=== PATIENT | female | born 1940 | race Caucasian/White ===

== ENCOUNTER 2017-06-24 00:08 | Inpatient (IN) | payer OTHER, MEDICARE ==
[~2017-06-24] VITALS: Ht 167.6 cm; Wt 90.7 kg
[2017-06-24] VITALS (8 sets, daily range): BP systolic 108–132; BP diastolic 50–78; PULSE 74–97; RESP 16–20; TEMP 97.6–98.5; O2SAT 89–96
[~2017-06-24 00:08] MED LIST: ASPI81TA82 PO; CARV3.125 PO; FISH1000 PO; GABA300C3 PO; GLUCTAB PO; LEVO75TA3 PO; LOVA10TA PO; MSIR15 PO; MVI PO; OMEP20TA PO; VITA200017 PO; VITA400C70 PO; VITA500T49 PO
[2017-06-24] MEDS ORDERED: MORP-43 PO (00:25)
[2017-06-24] MEDS ORDERED: METF500T PO (00:25)
[2017-06-24] MEDS ORDERED: GABA300C5 PO (00:25)
[2017-06-24 01:36] LABS: AUTOMATED NEUTROPHIL # 12.8 TH/MM3 (1.8-7.7); BASOPHIL % 0.2 % (0.0-2.0); EOSINOPHIL % 0.1 % (0.0-4.0); HEMATOCRIT 42.4 % (35.0-46.0); HEMOGLOBIN 13.6 GM/DL (11.6-15.3); LYMPH % 7.9 % (9.0-44.0); LYMPHOCYTE # 1.2 TH/MM3 (1.0-4.8); MEAN CELL VOLUME 80.5 FL (80.0-100.0); MEAN CORPUSCULAR HEMOGLOBIN 25.7 PG (27.0-34.0); MEAN PLATELET VOLUME 9.2 FL (7.0-11.0); MONO % 8.5 % (0.0-8.0); MONOCYTE # 1.3 TH/MM3 (0-0.9); NEUT % 83.3 % (16.0-70.0); PLATELET COUNT 199 TH/MM3 (150-450); RED BLOOD COUNT 5.27 MIL/MM3 (4.00-5.30); RED CELL DISTRIBUTION WIDTH 18.6 % (11.6-17.2); WHITE BLOOD COUNT 15.4 TH/MM3 (4.0-11.0)
[2017-06-24] MEDS ORDERED: MORPHINE SULFATE 15 MG CONTROLLED RELEASE TAB PO ONE (02:00)
[2017-06-24 02:08] LABS: ALBUMIN 2.9 GM/DL (3.4-5.0); ALT (GPT) 40 U/L (10-53); AST (GOT) 169 U/L (15-37); BICARBONATE 31.5 MEQ/L (21.0-32.0); BLOOD UREA NITROGEN 30 MG/DL (7-18); CALCIUM 8.7 MG/DL (8.5-10.1); CHLORIDE 101 MEQ/L (98-107); CREATININE 1.54 MG/DL (0.50-1.00); GLOMERULAR FILTRATION RATE 33 ML/MIN (>89); GLUCOSE,RANDOM 120 MG/DL (74-106); SODIUM (NA) 140 MEQ/L (136-145)
[2017-06-24 02:10] LABS: ALKALINE PHOSPHATASE 105 U/L (45-117); TOTAL BILIRUBIN ADULT 0.7 MG/DL (0.2-1.0); TOTAL PROTEIN 6.9 GM/DL (6.4-8.2)
[2017-06-24 02:14] LABS: BACTERIA, URINE MANY /hpf; BILIRUBIN, URINE NEG (NEG); BLOOD, URINE SMALL (NEG); GLUCOSE,URINE NEG (NEG); HYALINE CAST, URINE 2 /lpf (RARE); KETONE, URINE NEG (NEG); MUCUS URINE FEW /lpf (OCC); NITRITE,URINE POS (NEG); PH, URINE 5.5 (5.0-8.5); SQUAMOUS EPITHELIAL CELL URINE 2 /hpf (0-5); URINE COLOR YELLOW (YELLW/STRAW); URINE LEUKOCYTE ESTERASE SMALL (NEG)
[2017-06-24] MEDS ORDERED: PIPERACIL-TAZO 3.375 GM PREMIX 50 ML IV ONE (02:45)
--- NOTE | 2017-06-24 02:53 | PD ---
HPI Chief Complaint: Fall Time Seen by Provider: 00:15 Travel History International Travel<30 days: No Contact w/Intl Traveler<30days: No Traveled to known affect area: No History of Present Illness HPI Patient was lying unconscious on her floor of her house for unknown amount of hours possibly over 12 patient was found covered in feces half naked on the floor by her roommate. She was last seen normal over 12 hours ago. Patient comes in combative refusing to let the paramedics put a line in her she is covered in dried defecation and smells of urine as well as feces. She says that she is on medication for her chronic arthritis she says she tripped as she speaks she is very cloudy she fades off while she is talking and seems to be either under the influence or septic. In the middle of sentence she will trial off and not finished. Patient is refusing to let us put an IV in however recommends her to let us draw blood and to do in urine. Her UA shows that she has a urine infection and apparently she has been treated with p.o. antibiotics for urine infection without success patient still insisting she will not let us put an IV and to give her fluid as well as hydrate her kidneys to protect him from the rhabdomyolysis that she will have from falling and lying on the floor and one position for over 10 hours I feel it is necessary medically to put the IV in because she is not competent mind and body to make a decision right now to say that she will not let us put an IV in I give her Zosyn 3.375 g as well as 2 L of fluid and I am forced to put her in soft restraints we put the IV in because she is not able to refuse treatment because she is altered by sepsis as possible overdose of her opiates. HPI is limited due to her on cooperating resistant behavior. Review of systems is hard to assess as when she tells me recent account of events leading to face down on floor , in the middle of the account she slowly trails off and she falls asleep again PFSH Past Medical History Arthritis: Yes (RHEUMATOID) Blood Disorders: No Depression: Yes Cancer: No Cardiovascular Problems: Yes High Cholesterol: Yes COPD: Yes Diabetes: Yes Patient Takes Glucophage: No Diminished Hearing: No Endocrine: Yes GERD: Yes Genitourinary: Yes (HX OF KIDNEY STONES?) Immune Disorder: Yes Kidney Stones: Yes Musculoskeletal: Yes (OSTEOPOROSIS) Neurologic: No Psychiatric: Yes Reproductive: No Respiratory: Yes (COPD) ?: Not Menopausal: Yes Past Surgical History Other Surgery: Yes (POINTED TO L NECK) Social History Alcohol Use: Yes Tobacco Use: No Substance Use: No Allergies-Medications (Allergen,Severity, Reaction): Coded Allergies: No Known Allergies (Verified Allergy, Unknown, 06/24/17) Reported Meds & Prescriptions Reported Meds & Active Scripts Active Reported Gabapentin 300 Mg Cap 300 Mg PO BID Morphabond ER 12 HR (Morphine Sulfate) 15 Mg Tab 15 Mg PO Q12H Metformin (Metformin HCl) 500 Mg Tab 500 Mg PO DAILY With a meal Review of Systems ROS Limitations: Altered Mental Status, Poor Historian Physical Exam Narrative GENERAL: Patient seems on altered possibly delirium due to sepsis due to UTI or due to overdose of the morphine pill she takes an she trails off in the middle of sentence SKIN: Warm and dry. covered in dried fecal material, sacral breakdown parasacral bilateral HEAD: Atraumatic. Normocephalic. EYES: Pupils equal and round. No scleral icterus. No injection or drainage. ENT: No nasal bleeding or discharge. Mucous membranes pink and moist. NECK: Trachea midline. No JVD. CARDIOVASCULAR: Regular rate and rhythm. RESPIRATORY: No accessory muscle use. Clear to auscultation. Breath sounds equal bilaterally. GASTROINTESTINAL: Abdomen soft, non-tender, nondistended. Hepatic and splenic margins not palpable. MUSCULOSKELETAL: Extremities without clubbing, cyanosis, or edema. No obvious deformities. NEUROLOGICAL: Awake and alert. No obvious cranial nerve deficits. Motor grossly within normal limits. Five out of 5 muscle strength in the arms and legs. Normal speech. PSYCHIATRIC: Irritable and uncooperative as well as seeming to be septic or having fluctuating levels of consciousness Data Data Last Documented VS Orders Orders Urinalysis - C+S If Indicated (06/24/17 00:26) Complete Blood Count With Diff (06/24/17 00:26) Comprehensive Metabolic Panel (06/24/17 00:26) Morphine Sr (Oramorph Sr) (06/24/17 02:00) Urinary Catheter Management JOSEMANUEL.Q8H (06/24/17 01:52) Ct Brain W/O Iv Contrast(Rout) (06/24/17 ) Urine Culture (06/24/17 02:00) Creatine Kinase (Cpk) (06/24/17 02:26) Piperacil-Tazo 3.375 Gm Premix (Zosyn 3. (06/24/17 02:45) Restraints Non-Violent JOSEMANUEL.Q3H (06/24/17 03:25) Dextrose 50% In Evangelista (Vial) Inj (D50w (Vi (06/24/17 04:15) Glucagon Inj (Glucagon Inj) (06/24/17 04:15) Insulin Aspart Supplemtl Scale (Novolog (06/24/17 08:00) Admit To Inpatient (06/24/17 ) Vital Signs (Adult) Q4H (06/24/17 04:15) Activity Oob With Assistance (06/24/17 04:15) Intake + Output JOSEMANUEL.QSHIFT (06/24/17 04:15) Diet 1800 Ada Cons Carb (06/24/17 Breakfast) Sodium Chlor 0.9% 1000 Ml Inj (Ns 1000 M (06/24/17 04:15) Sodium Chloride 0.9% Flush (Ns Flush) (06/24/17 04:15) Sodium Chloride 0.9% Flush (Ns Flush) (06/24/17 09:00) Ondansetron Inj (Zofran Inj) (06/24/17 04:15) Comprehensive Metabolic Panel (06/25/17 06:00) Complete Blood Count With Diff (06/25/17 06:00) Pt Request For Service (06/24/17 04:15) Case Management Consult (06/24/17 04:15) Scd Bilateral/Knee High JOSEMANUEL.BID (06/24/17 04:15) Floyd Bilateral/Knee High JOSEMANUEL.QSHIFT (06/24/17 04:16) Acetaminophen (Tylenol) (06/24/17 04:15) Docusate Sodium-Senna (Manjula-Colace) (06/24/17 09:00) Magnesium Hydroxide Liq (Milk Of Magnesi (06/24/17 04:15) Sennosides (Senokot) (06/24/17 04:15) Bisacodyl Supp (Dulcolax Supp) (06/24/17 04:15) Lactulose Liq (Lactulose Liq) (06/24/17 04:15) Inpatient Certification (4/28/18 ) Ceftriaxone Inj (Rocephin Inj) (06/24/17 23:00) CKMB (06/24/17 01:25) CKMB% (06/24/17 01:25) Admit Order (Ed Use Only) (06/24/17 04:31) Labs Laboratory Tests Test 06/24/17 01:25 06/24/17 02:00 White Blood Count 15.4 TH/MM3 Red Blood Count 5.27 MIL/MM3 Hemoglobin 13.6 GM/DL Hematocrit 42.4 % Mean Corpuscular Volume 80.5 FL Mean Corpuscular Hemoglobin 25.7 PG Mean Corpuscular Hemoglobin Concent 32.0 % Red Cell Distribution Width 18.6 % Platelet Count 199 TH/MM3 Mean Platelet Volume 9.2 FL Neutrophils (%) (Auto) 83.3 % Lymphocytes (%) (Auto) 7.9 % Monocytes (%) (Auto) 8.5 % Eosinophils (%) (Auto) 0.1 % Basophils (%) (Auto) 0.2 % Neutrophils # (Auto) 12.8 TH/MM3 Lymphocytes # (Auto) 1.2 TH/MM3 Monocytes # (Auto) 1.3 TH/MM3 Eosinophils # (Auto) 0.0 TH/MM3 Basophils # (Auto) 0.0 TH/MM3 CBC Comment DIFF FINAL Differential Comment Blood Urea Nitrogen 30 MG/DL Creatinine 1.54 MG/DL Random Glucose 120 MG/DL Total Protein 6.9 GM/DL Albumin 2.9 GM/DL Calcium Level 8.7 MG/DL Alkaline Phosphatase 105 U/L Aspartate Amino Transf (AST/SGOT) 169 U/L Alanine Aminotransferase (ALT/SGPT) 40 U/L Total Bilirubin 0.7 MG/DL Sodium Level 140 MEQ/L Potassium Level 3.9 MEQ/L Chloride Level 101 MEQ/L Carbon Dioxide Level 31.5 MEQ/L Anion Gap 8 MEQ/L Estimat Glomerular Filtration Rate 33 ML/MIN Total Creatine Kinase 3350 U/L Creatine Kinase MB 48.3 NG/ML Creatine Kinase MB % 1.4 % Urine Color YELLOW Urine Turbidity HAZY Urine pH 5.5 Urine Specific [place] 1.017 Urine Protein TRACE mg/dL Urine Glucose (UA) NEG mg/dL Urine Ketones NEG mg/dL Urine Occult Blood SMALL Urine Nitrite POS Urine Bilirubin NEG Urine Urobilinogen 2.0 MG/DL Urine Leukocyte Esterase SMALL Urine RBC 2 /hpf Urine WBC 3 /hpf Urine Squamous Epithelial Cells 2 /hpf Urine Bacteria MANY /hpf Urine Hyaline Casts 2 /lpf Urine Mucus FEW /lpf Microscopic Urinalysis Comment CULTURE INDICATED MDM Medical Decision Making Medical Screen Exam Complete: Yes Emergency Medical Condition: Yes Differential Diagnosis urosepsis leading to altered mental status, vs AMS from morphine overdose other versus altered mental status from head bleed versus altered mental status from dehydration versus altered mental status from hypoglycemia versus other causes of altered mental status including ingestions or toxins Narrative Course Patient has a UTI which is nitrate positive she is given Zosyn 3.375 g she also has rhabdomyolysis with 3350 CPK -->2 L of normal saline to protect her kidneys patient is admitted for rhabdomyolysis as well as UTI. Pt was refusing labs work and IV access but her mental status was altered and she was in no state to understand the severity of her situation , We briefly place her in soft restraints to given her ANtibioitcs and @ liters of NS to protect her kidneys from permanent injury, Admit for further eval of MS Diagnosis Primary Impression: Rhabdomyolysis Qualified Codes: M62.82 - Rhabdomyolysis Additional Impressions: BILL (acute kidney injury) UTI (urinary tract infection) Qualified Codes: N30.00 - Acute cystitis without hematuria Admitting Information Admitting Physician Requests: Admit Scripts Skin Protectants, Misc. (Calazime Skin Protectant/) 3.5 %-0.2 %-69 %-16.5 % Pst 3.5 % TOPICAL BID for Infection, #1 % 1 Refill Prov: Mitch Loera MD 06/26/17 Walker with Front Wheels (Walker with Front Wheels) 1 Mis Mis EA .XX DIRECTED, #1 0 Refills Prov: Mitch Loera MD 06/26/17 Lactobacillus Acidophilus (Lactinex) 1 Chew 1 TAB CHEW DAILY for Nutritional Supplement, #30 TAB 0 Refills Prov: Mitch Loera MD 06/26/17 Cefuroxime (Cefuroxime) 500 Mg Tab 500 MG PO Q12HR for Infection, #14 TAB Prov: Mitch Loera MD 06/26/17 Willie Spring MD Jun 24, 2017 02:53
[2017-06-24] MEDS ORDERED: LACTULOSE SYRUP 20 GM/30 ML CUP PO PRN (04:15)
[2017-06-24] MEDS ORDERED: SENNOSIDES 8.6 MG TAB PO PRN (04:15)
[2017-06-24] MEDS ORDERED: DEXTROSE 50% IN WATER 50 ML VIAL(D50) IV PUSH PRN (04:15)
[2017-06-24] MEDS ORDERED: GLUCAGON 1 MG/ML VIAL OTHER PRN (04:15)
[2017-06-24] MEDS ORDERED: MAGNESIUM HYDROXIDE SUSP 30 ML CUP PO PRN (04:15)
[2017-06-24] MEDS ORDERED: BISACODYL 10 MG SUPP RECTAL PRN (04:15)
[2017-06-24] MEDS ORDERED: SODIUM CHLORIDE 0.9% FLUSH 10 ML FLUSH IV FLUSH PRN (04:15)
[2017-06-24] MEDS ORDERED: ONDANSETRON HCL 4 MG/2 ML VIAL IVP PRN (04:15)
--- NOTE | 2017-06-24 04:22 | RADRPT ---
EXAM DATE/TIME: 06/24/2017 04:10 [place] COMPARISON: CT BRAIN W/O CONTRAST, February 03, 2015, 8:32. INDICATIONS : Altered mental status. RADIATION DOSE: 56.35 CTDIvol (mGy) MEDICAL HISTORY : Non-responsive. SURGICAL HISTORY : Non-responsive. ENCOUNTER: Initial ACUITY: 1 day PAIN SCALE: Non-responsive LOCATION: cranial TECHNIQUE: Multiple contiguous axial images were obtained of the head. Using automated exposure control and adj ustment of the mA and/or kV according to patient size, radiation dose was kept as low as reasonably a chievable to obtain optimal diagnostic quality images. DICOM format image data is available electro nically for review and comparison. FINDINGS: CEREBRUM: The ventricles are normal for age. No evidence of midline shift, mass lesion, hemorrhage or acute in farction. No extra-axial fluid collections are seen. POSTERIOR FOSSA: The cerebellum and brainstem are intact. The 4th ventricle is midline. The cerebellopontine angle i s unremarkable. EXTRACRANIAL: The visualized portion of the orbits is intact. SKULL: The calvaria is intact. No evidence of skull fracture. CONCLUSION: 1. No acute findings in the brain. Jeffy Valladares MD on June 24, 2017 at 4:19 Board Certified Radiologist. This report was verified electronically.
--- NOTE | 2017-06-24 04:58 | HHI.HP ---
[facility] Service [place] [facility] Primary Care Physician Unknown Admission Diagnosis uti and renal failure Diagnoses: (1) Encephalopathy Diagnosis: Principal (2) UTI (urinary tract infection) Diagnosis: Principal (3) BILL (acute kidney injury) Diagnosis: Principal (4) Rhabdomyolysis Diagnosis: Principal (5) DM (diabetes mellitus) Diagnosis: Principal Travel History International Travel<30 Days: No Contact w/Intl Traveler <30 Da: No Traveled to Known Affected Are: No History of Present Illness This is a 77-year-old female with a PMH of Rheumatoid Arthritis, HTN, Hyperlipidemia, COPD, DM and Chronic Narcotic Use who is brought to the ER by EMS after being found down by her roommate. Per report, pt last seen normal approx 12hrs prior, roommate found patient lying on the floor of her apartment covered in urine and feces. Upon arrival, pt combative/refusing medical care, placed in restraints, intermittent episodes of lethargy/sedation. Pt unable to provide any history secondary to AMS. On Morphine ER 15mg po bid per review of medication list. BP 128/58, HR 96, O2 sat 89% on RA, Afebrile. WBC 15.4. Creatinine 1.54, previously 0.78 on 02/06/2015. CPK 3350. UA positive for UTI. CT Head with no acute findings. S/p Zosyn in ER. Review of Systems Except as stated in HPI: all other systems reviewed are Neg ROS: Unable to obtain secondary to AMS. Past Family Social History Past Medical History PMH: Rheumatoid Arthritis, HTN, Hyperlipidemia, COPD, DM and Chronic Narcotic Use Past Surgical History PAST SURGICAL HISTORY: Unknown Allergies: Coded Allergies: No Known Allergies (Verified Allergy, Unknown, 06/24/17) Family History PAST FAMILY HISTORY: Reviewed. No h/o DM or CAD Social History PAST SOCIAL HISTORY: Positive for alcohol. Reportedly negative for tobacco or drugs. Physical Exam Vital Signs Vital Signs Date Time Temp Pulse Resp B/P (MAP) Pulse Ox O2 Delivery O2 Flow Rate FiO2 06/24/17 04:42 78 16 128/58 (81) 94 Simple Mask 7.00 06/24/17 00:14 98.4 96 18 128/58 (05) 89 Physical Exam PE: GENERAL: Elderly white female in no acute distress, lethargy, rouses to name, not answering questions. HEENT: PERRLA, EOMI. No scleral icterus or conjunctival pallor. No lid lag or facial droop. CARDIOVASCULAR: Regular rate and rhythm. No obvious murmurs to auscultation. No chest tenderness to palpation. RESPIRATORY: No obvious rhonchi or wheezing. Clear to auscultation. Breath sounds equal bilaterally. GASTROINTESTINAL: Abdomen soft, non-tender, nondistended. BS normal. MUSCULOSKELETAL: Extremities without clubbing, cyanosis, or edema. No obvious deformities. NEUROLOGICAL: Lethargic, not answering questions. No focal neurologic deficits. Moving both upper and lower extremities spontaneously. Laboratory Laboratory Tests Test 06/24/17 01:25 06/24/17 02:00 White Blood Count 15.4 Red Blood Count 5.27 Hemoglobin 13.6 Hematocrit 42.4 Mean Corpuscular Volume 80.5 Mean Corpuscular Hemoglobin 25.7 Mean Corpuscular Hemoglobin Concent 32.0 Red Cell Distribution Width 18.6 Platelet Count 199 Mean Platelet Volume 9.2 Neutrophils (%) (Auto) 83.3 Lymphocytes (%) (Auto) 7.9 Monocytes (%) (Auto) 8.5 Eosinophils (%) (Auto) 0.1 Basophils (%) (Auto) 0.2 Neutrophils # (Auto) 12.8 Lymphocytes # (Auto) 1.2 Monocytes # (Auto) 1.3 Eosinophils # (Auto) 0.0 Basophils # (Auto) 0.0 CBC Comment DIFF FINAL Differential Comment Blood Urea Nitrogen 30 Creatinine 1.54 Random Glucose 120 Total Protein 6.9 Albumin 2.9 Calcium Level 8.7 Alkaline Phosphatase 105 Aspartate Amino Transf (AST/SGOT) 169 Alanine Aminotransferase (ALT/SGPT) 40 Total Bilirubin 0.7 Sodium Level 140 Potassium Level 3.9 Chloride Level 101 Carbon Dioxide Level 31.5 Anion Gap 8 Estimat Glomerular Filtration Rate 33 Total Creatine Kinase 3350 Creatine Kinase MB 48.3 Creatine Kinase MB % 1.4 Urine Color YELLOW Urine Turbidity HAZY Urine pH 5.5 Urine Specific [place] 1.017 Urine Protein TRACE Urine Glucose (UA) NEG Urine Ketones NEG Urine Occult Blood SMALL Urine Nitrite POS Urine Bilirubin NEG Urine Urobilinogen 2.0 Urine Leukocyte Esterase SMALL Urine RBC 2 Urine WBC 3 Urine Squamous Epithelial Cells 2 Urine Bacteria MANY Urine Hyaline Casts 2 Urine Mucus FEW Microscopic Urinalysis Comment CULTURE INDICATED Date/Time Source Procedure Growth Status 06/24/17 02:00 Urine Clean Catch Urine Culture Pending Received Result Diagram: 06/24/1712406/24/17124 Caprini VTE Risk Assessment Caprini VTE Risk Assessment: No/Low Risk (score <= 1) Caprini Risk Assessment Model Point Value = 1 Point Value = 2 Point Value = 3 Point Value = 5 Age 41-60 Minor surgery BMI > 25 kg/m2 Swollen legs Varicose veins or History of unexplained or recurrent spontaneous Oral contraceptives or hormone replacement Sepsis (< 1 month) Serious lung disease, including pneumonia (< 1 month) Abnormal pulmonary function Acute myocardial infarction Congestive heart failure (< 1 month) History of inflammatory bowel disease Medical patient at bed rest Age 61-74 Arthroscopic surgery Major open surgery (> 45 min) Laparoscopic surgery (> 45 min) Malignancy Confined to bed (> 72 hours) Immobilizing plaster cast Central venous access Age >= 75 History of VTE Family history of VTE Factor V Leiden Prothrombin [id number] Lupus anticoagulant Anticardiolipin antibodies Elevated serum homocysteine Heparin-induced thrombocytopenia Other congenital or acquired thrombophilia Stroke (< 1 month) Elective arthroplasty Hip, pelvis, or leg fracture Acute spinal cord injury (< 1 month) Prophylaxis Regimen Total Risk Factor Score Risk Level Prophylaxis Regimen 0-1 Low Early ambulation 2 Moderate Order ONE of the following: *Sequential Compression Device (SCD) *Heparin 5000 units SQ BID 3-4 Higher Order ONE of the following medications: *Heparin 5000 units SQ TID *Enoxaparin/Lovenox 40 mg SQ daily (WT < 150 kg, CrCl > 30 mL/min) *Enoxaparin/Lovenox 30 mg SQ daily (WT < 150 kg, CrCl > 10-29 mL/min) *Enoxaparin/Lovenox 30 mg SQ BID (WT < 150 kg, CrCl > 30 mL/min) AND/OR *Sequential Compression Device (SCD) 5 or more Highest Order ONE of the following medications: *Heparin 5000 units SQ TID (Preferred with Epidurals) *Enoxaparin/Lovenox 40 mg SQ daily (WT < 150 kg, CrCl > 30 mL/min) *Enoxaparin/Lovenox 30 mg SQ daily (WT < 150 kg, CrCl > 10-29 mL/min) *Enoxaparin/Lovenox 30 mg SQ BID (WT < 150 kg, CrCl > 30 mL/min) AND *Sequential Compression Device (SCD) Assessment and Plan Problem List: (1) Encephalopathy ICD Code: G93.40 - Encephalopathy, unspecified (2) UTI (urinary tract infection) ICD Code: N39.0 - Urinary tract infection, site not specified (3) BILL (acute kidney injury) ICD Code: N17.9 - Acute kidney failure, unspecified (4) Rhabdomyolysis ICD Code: M62.82 - Rhabdomyolysis (5) DM (diabetes mellitus) ICD Code: E11.9 - Type 2 diabetes mellitus without complications Assessment and Plan A/P: 1. Encephalopathy: baseline unknown, however seemingly independent, now lethargic/confused with intermittent episodes of agitation/combativeness, likely due to combination of chronic narcotic use and acute infection. CT Head w/ no acute findings, images reviewed by me. Neuro checks q4h. Hold narcotics. IVF, continue w/ IV Abx for underlying UTI. 2. UTI: U/a w/ UTI, s/p Zosyn IV in ER, continue w/ IV Abx, follow up cultures , IVF for hydration. 3. BILL: Creatinine 1.54, previously 0.78 on 02/06/15, IVF, repeat labs in am. 4. Rhabdomyolysis: CPK 3350, IVF for hydration, will repeat CPK in am for trend. 5. DM: Hold Metformin in light of BILL, sliding scale w/ Accu-Cheks. 6. DVT Prophylaxis: SCD/Teds. 7. Social work for d/c planning as needed. 8. Case discussed w/ ER physician at length, labs/records/imaging reviewed by me Physician Certification 2 Midnight Certification Type: Admission for Inpatient Services Order for Inpatient Services The services are ordered in accordance with Medicare regulations or non- Medicare payer requirements, as applicable. In the case of services not specified as inpatient-only, they are appropriately provided as inpatient services in accordance with the 2-midnight benchmark. Estimated LOS (days): 2 days is the estimated time the patient will need to remain in the hospital, assuming treatment plan goals are met and no additional complications. Post-Hospital Plan: Not yet determined Cecile Broussard MD Jun 24, 2017 04:58
[2017-06-24] MEDS ORDERED: SODIUM CHLOR 0.9% 1000 ML INJ 1,000 ML IV ONE (05:30)
[2017-06-24] MEDS: SODIUM CHLOR 0.9% 1000 ML INJ 1,000 ML IV SCH ×2 (07:05→21:42)
[2017-06-24] MEDS: INSULIN ASPART SUPPLEMENTAL SCALE SQ SCH ×4 (08:00→21:00)
[2017-06-24] MEDS ORDERED: DOCUSATE SODIUM 50 MG/SENNA 8.6 MG TAB PO SCH (09:00)
[2017-06-24] MEDS: SODIUM CHLORIDE 0.9% FLUSH 10 ML FLUSH IV FLUSH SCH ×2 (09:00→19:56)
--- NOTE | 2017-06-24 11:38 | HHI.PR ---
Subjective Remarks Follow-up embolic versus toxic encephalopathy/sepsis on presentation/UTI June 24, 2017-patient seen and examined, patient still lethargic however able to give me her name and stated she is lost her house and now lives with her roommate Objective Vitals Vital Signs Date Time Temp Pulse Resp B/P (MAP) Pulse Ox O2 Delivery O2 Flow Rate FiO2 06/24/17 07:20 97.6 78 20 132/78 (96) 94 06/24/17 05:50 74 18 117/56 (76) 95 Simple Mask 7.00 06/24/17 04:42 78 16 128/58 (81) 94 Simple Mask 7.00 06/24/17 00:14 98.4 96 18 128/58 (81) 89 Result Diagram: 06/24/17 0125 06/24/17 0125 Imaging Last Impressions Head CT 06/24/17 0000 Signed Impressions: Service Date/Time: Saturday, June 24, 2017 04:10 - CONCLUSION: 1. No acute findings in the brain. Jeffy Valladares MD Objective Remarks GENERAL: NAD SKIN: Warm and dry. HEAD: Normocephalic. EYES: No scleral icterus. No injection or drainage. NECK: Supple, trachea midline. No JVD or lymphadenopathy. CARDIOVASCULAR: Regular rate and rhythm without murmurs, gallops, or rubs. RESPIRATORY: Breath sounds equal bilaterally. No accessory muscle use. GASTROINTESTINAL: Abdomen soft, non-tender, nondistended. MUSCULOSKELETAL: No cyanosis, or edema. BACK: Nontender without obvious deformity. No CVA tenderness. A/P Problem List: (1) Sepsis ICD Code: A41.9 - Sepsis, unspecified organism (2) Encephalopathy ICD Code: G93.40 - Encephalopathy, unspecified (3) UTI (urinary tract infection) ICD Code: N39.0 - Urinary tract infection, site not specified (4) BILL (acute kidney injury) ICD Code: N17.9 - Acute kidney failure, unspecified (5) Rhabdomyolysis ICD Code: M62.82 - Rhabdomyolysis (6) DM (diabetes mellitus) ICD Code: E11.9 - Type 2 diabetes mellitus without complications Assessment and Plan 71-year-old female with Sepsis on presentation secondary to UTI Currently on Rocephin pending culture report including blood and urine Metabolic versus toxic encephalopathy Improving CT Head w/ no acute findings. Neuro checks q4h. Hold narcotics. IVF, continue w/ IV Abx for underlying UTI Urinary tract infection u/a w/ UTI, s/p Zosyn IV in ER, continue w/ IV Abx, follow up cultures, IVF for hydration. Acute kidney injury creatinine 1.54, previously 0.78 on 02/06/15, IVF, monitor BMP Rhabdomyolysis: CPK 3350, IVF for hydration, monitor CPK DM: Hold Metformin in light of BILL, sliding scale w/ Accu-Cheks. 6. DVT Prophylaxis: SCD/Teds. Problem Qualifiers (1) UTI (urinary tract infection): Qualified Codes: N30.00 - Acute cystitis without hematuria (2) Rhabdomyolysis: Qualified Codes: M62.82 - Rhabdomyolysis Mitch Loera MD Jun 24, 2017 11:38
[2017-06-24] MEDS: ACETAMINOPHEN 325 MG TAB PO PRN ×2 (12:37→19:53)
[2017-06-24] MEDS: cefTRIAXone INJ 1,000 MG in SODIUM CHLORIDE 0.9% INJ 100 ML IV SCH (22:24)
[2017-06-25] VITALS: BP 161/77; PULSE 83; RESP 18; TEMP 98.1; O2SAT 94
[2017-06-25] MEDS: ACETAMINOPHEN 325 MG TAB PO PRN ×2 (01:53→08:09)
[2017-06-25] MEDS: SODIUM CHLOR 0.9% 1000 ML INJ 1,000 ML IV SCH ×4 (01:54→20:38)
[2017-06-25 06:56] LABS: BASOPHIL % 0.3 % (0.0-2.0); EOSINOPHIL # 0.1 TH/MM3 (0-0.4); EOSINOPHIL % 0.5 % (0.0-4.0); HEMATOCRIT 43.6 % (35.0-46.0); MEAN CELL VOLUME 80.1 FL (80.0-100.0); MEAN CORPUSCULAR HEMOGLOBIN 25.7 PG (27.0-34.0); MEAN CORPUSCULAR HGB CONC 32.1 % (32.0-36.0); MEAN PLATELET VOLUME 9.4 FL (7.0-11.0); MONO % 7.1 % (0.0-8.0); MONOCYTE # 0.8 TH/MM3 (0-0.9); NEUT % 83.1 % (16.0-70.0); PLATELET COUNT 183 TH/MM3 (150-450); RED BLOOD COUNT 5.44 MIL/MM3 (4.00-5.30); RED CELL DISTRIBUTION WIDTH 18.4 % (11.6-17.2); WHITE BLOOD COUNT 10.9 TH/MM3 (4.0-11.0)
[2017-06-25 07:19] LABS: ALBUMIN 2.9 GM/DL (3.4-5.0); ALKALINE PHOSPHATASE 104 U/L (45-117); ALT (GPT) 49 U/L (10-53); AST (GOT) 125 U/L (15-37); BICARBONATE 29.3 MEQ/L (21.0-32.0); BLOOD UREA NITROGEN 8 MG/DL (7-18); CALCIUM 9.2 MG/DL (8.5-10.1); CHLORIDE 103 MEQ/L (98-107); CHOLESTEROL 148 MG/DL (120-200); CHOLESTEROL/ HDL RATIO 3.18 RATIO; CREATININE 0.64 MG/DL (0.50-1.00); GLOMERULAR FILTRATION RATE 90 ML/MIN (>89); GLUCOSE,RANDOM 109 MG/DL (74-106); HDL CHOLESTEROL 46.4 MG/DL (40.0-60.0); LDL CHOLESTEROL 80 MG/DL (0-99); SODIUM (NA) 142 MEQ/L (136-145); TOTAL BILIRUBIN ADULT 0.6 MG/DL (0.2-1.0); TOTAL PROTEIN 7.2 GM/DL (6.4-8.2); TRIGLYCERIDES 110 MG/DL (42-150)
[2017-06-25 08:00] VITALS: BP 134/85; PULSE 91; RESP 18; TEMP 98; O2SAT 96
[2017-06-25] MEDS: INSULIN ASPART SUPPLEMENTAL SCALE SQ SCH ×2 (08:00→12:00)
[2017-06-25] MEDS: SODIUM CHLORIDE 0.9% FLUSH 10 ML FLUSH IV FLUSH SCH ×2 (08:15→20:37)
[2017-06-25 12:00] VITALS: BP 175/86; PULSE 99; RESP 18; TEMP 97.1; O2SAT 94
[2017-06-25] MEDS ORDERED: ONDANSETRON HCL 4 MG/2 ML VIAL IV PUSH PRN (12:30)
[2017-06-25] MEDS ORDERED: CALCIUM CARBONATE 500 MG CHEWABLE TAB CHEW PRN (12:30)
--- NOTE | 2017-06-25 12:38 | HHI.PR ---
Subjective Remarks Follow-up embolic versus toxic encephalopathy/sepsis on presentation/UTI June 24, 2017-patient seen and examined, patient still lethargic however able to give me her name and stated she is lost her house and now lives with her roommate June 25, 2017-patient seen and examined, she is requesting her narcotics and states she is in pain. Alert and oriented x 3. Afebrile. Renal indices improved , CK trending down Objective Vitals Vital Signs Date Time Temp Pulse Resp B/P (MAP) Pulse Ox O2 Delivery O2 Flow Rate FiO2 06/25/17 12:00 97.1 99 18 175/86 (115) 94 06/25/17 09:09 16 06/25/17 08:00 98.0 91 18 134/85 (101) 96 06/25/17 00:00 98.1 83 18 161/77 (105) 94 06/24/17 23:28 93 Nasal Cannula 3.00 06/24/17 20:00 95 Simple Mask 7.00 06/24/17 20:00 98.3 97 18 124/63 (83) 95 06/24/17 16:00 97.7 81 18 126/60 (82) 96 06/24/17 12:46 Simple Mask 7.00 I/O 06/24/17 06/24/17 06/24/17 06/25/17 06/25/17 06/25/17 07:00 15:00 23:00 07:00 15:00 23:00 Intake Total 600 ml 1723 ml Output Total 900 ml 1250 ml 1200 ml Balance -300 ml 473 ml -1200 ml Intake Oral 600 ml 360 ml IV Total 1363 ml Output Urine Total 900 ml 1250 ml 1200 ml # Bowel Movements 4 4 Result Diagram: 06/25/17 0526 06/25/17 0526 Imaging Last Impressions Head CT 06/24/17 0000 Signed Impressions: Service Date/Time: Saturday, June 24, 2017 04:10 - CONCLUSION: 1. No acute findings in the brain. Jeffy Valladares MD Objective Remarks GENERAL: NAD SKIN: Warm and dry. wound to buttocks and RLE thigh HEAD: Normocephalic. EYES: No scleral icterus. No injection or drainage. NECK: Supple, trachea midline. No JVD or lymphadenopathy. CARDIOVASCULAR: Regular rate and rhythm without murmurs, gallops, or rubs. RESPIRATORY: Breath sounds equal bilaterally. No accessory muscle use. GASTROINTESTINAL: Abdomen soft, non-tender, nondistended. MUSCULOSKELETAL: No cyanosis, or edema. BACK: Nontender without obvious deformity. No CVA tenderness. A/P Problem List: (1) Sepsis ICD Code: A41.9 - Sepsis, unspecified organism (2) Encephalopathy ICD Code: G93.40 - Encephalopathy, unspecified (3) UTI (urinary tract infection) ICD Code: N39.0 - Urinary tract infection, site not specified (4) BILL (acute kidney injury) ICD Code: N17.9 - Acute kidney failure, unspecified (5) Rhabdomyolysis ICD Code: M62.82 - Rhabdomyolysis (6) DM (diabetes mellitus) ICD Code: E11.9 - Type 2 diabetes mellitus without complications Assessment and Plan 71-year-old female with Sepsis on presentation secondary to UTI Currently on Rocephin pending culture report including blood and urine Metabolic versus toxic encephalopathy Resolved CT Head w/ no acute findings. Neuro checks q4h. IVF, continue w/ IV Abx for underlying UTI Urinary tract infection u/a w/ UTI, s/p Zosyn IV in ER, continue w/ IV Abx, follow up cultures, IVF for hydration. Acute kidney injury Resolved with IVF, monitor BMP Decub ulcers Wound care nurse consult pending Chronic pain syndrome Start Low dose Narco, continue to Morphine Rhabdomyolysis: CPK improving IVF for hydration, monitor CPK DM: Resume Metformin, sliding scale w/ Accu-Cheks. DVT Prophylaxis: SCD/Teds. Problem Qualifiers (1) UTI (urinary tract infection): Qualified Codes: N30.00 - Acute cystitis without hematuria (2) Rhabdomyolysis: Qualified Codes: M62.82 - Rhabdomyolysis Mitch Loera MD Jun 25, 2017 12:38
[2017-06-25] MEDS: ACETAMINOPHEN/HYDROcodone 325 MG/5 MG TAB PO PRN ×3 (13:00→21:36)
[2017-06-25 16:00] VITALS: BP 160/85; PULSE 89; RESP 18; TEMP 97.7; O2SAT 95
[2017-06-25 20:00] VITALS: BP 167/80; PULSE 89; RESP 19; TEMP 98.2; O2SAT 94
[2017-06-25] MEDS: GABAPENTIN 300 MG CAP PO SCH (20:37)
[2017-06-25] MEDS: cefTRIAXone INJ 1,000 MG in SODIUM CHLORIDE 0.9% INJ 100 ML IV SCH (23:06)
[2017-06-26 00:11] VITALS: BP 158/81; PULSE 92; RESP 18; TEMP 98; O2SAT 94
[2017-06-26] MEDS: ACETAMINOPHEN/HYDROcodone 325 MG/5 MG TAB PO PRN ×2 (02:08→07:16)
[2017-06-26 04:19] VITALS: BP 167/80; PULSE 89; RESP 19; TEMP 98.2; O2SAT 94
[2017-06-26] MEDS: SODIUM CHLOR 0.9% 1000 ML INJ 1,000 ML IV SCH (06:15)
[2017-06-26 08:00] VITALS: BP 134/63; PULSE 73; RESP 17; TEMP 98.3; O2SAT 94
[2017-06-26] MEDS ORDERED: metFORMIN HCL 500 MG TAB PO SCH (09:00)
[2017-06-26] MEDS: SODIUM CHLORIDE 0.9% FLUSH 10 ML FLUSH IV FLUSH SCH (09:00)
[2017-06-26] MEDS: GABAPENTIN 300 MG CAP PO SCH (09:03)
--- NOTE | 2017-06-26 09:30 | HHI.FF ---
Face to Face Verification Diagnosis: (1) UTI (urinary tract infection) (2) Rhabdomyolysis (3) Encephalopathy Physical Therapy Order: Evaluate and Treat Home Health Nursing Order: Signs/symptoms of disease process I have seen patient Cathi Patton on 06/26/17. My clinical findings support the need for the requested home health care services because: Deconditioned w/ increased weakness I certify that my clinical findings support that this patient is homebound because: Poor cardiac reserve Mitch Loera MD Jun 26, 2017 09:30
--- NOTE | 2017-06-26 09:37 | HHI.PR ---
Subjective Remarks Follow-up embolic versus toxic encephalopathy/sepsis on presentation/UTI June 24, 2017-patient seen and examined, patient still lethargic however able to give me her name and stated she is lost her house and now lives with her roommate June 25, 2017-patient seen and examined, she is requesting her narcotics and states she is in pain. Alert and oriented x 3. Afebrile. Renal indices improved , CK trending down June 26, 2017-patient seen and examined, states she had a pretty good night and ready for discharge home. No acute event overnight. CK improved. Currently afebrile Objective Vitals Vital Signs Date Time Temp Pulse Resp B/P (MAP) Pulse Ox O2 Delivery O2 Flow Rate FiO2 06/26/17 08:55 Nasal Cannula 3.00 06/26/17 08:00 98.3 73 17 134/63 (86) 94 06/26/17 04:19 98.2 89 19 167/80 (109) 94 06/26/17 00:11 98.0 92 18 158/81 (106) 94 06/25/17 20:00 98.2 89 19 167/80 (109) 94 06/25/17 20:00 94 Nasal Cannula 3.00 06/25/17 18:43 17 06/25/17 16:00 97.7 89 18 160/85 (110) 95 06/25/17 12:00 97.1 99 18 175/86 (115) 94 I/O 06/25/17 06/25/17 06/25/17 06/26/17 06/26/17 06/26/17 07:00 15:00 23:00 07:00 15:00 23:00 Intake Total 1723 ml 1173 ml 1412 ml Output Total 1250 ml 1200 ml 300 ml 1150 ml Balance 473 ml -1200 ml 873 ml 262 ml Intake Oral 360 ml 600 ml 360 ml IV Total 1363 ml 573 ml 1052 ml Output Urine Total 1250 ml 1200 ml 300 ml 1150 ml # Bowel Movements 4 0 0 Result Diagram: 06/25/17 0526 06/25/17 0526 Imaging Last Impressions Head CT 06/24/17 0000 Signed Impressions: Service Date/Time: Saturday, June 24, 2017 04:10 - CONCLUSION: 1. No acute findings in the brain. Jeffy Valladares MD Objective Remarks GENERAL: NAD SKIN: Warm and dry. wound to buttocks and RLE thigh HEAD: Normocephalic. EYES: No scleral icterus. No injection or drainage. NECK: Supple, trachea midline. No JVD or lymphadenopathy. CARDIOVASCULAR: Regular rate and rhythm without murmurs, gallops, or rubs. RESPIRATORY: Breath sounds equal bilaterally. No accessory muscle use. GASTROINTESTINAL: Abdomen soft, non-tender, nondistended. MUSCULOSKELETAL: No cyanosis, or edema. BACK: Nontender without obvious deformity. No CVA tenderness. Procedures None A/P Problem List: (1) Sepsis ICD Code: A41.9 - Sepsis, unspecified organism Status: Resolved (2) Encephalopathy ICD Code: G93.40 - Encephalopathy, unspecified Status: Resolved (3) UTI (urinary tract infection) ICD Code: N39.0 - Urinary tract infection, site not specified (4) BILL (acute kidney injury) ICD Code: N17.9 - Acute kidney failure, unspecified (5) Rhabdomyolysis ICD Code: M62.82 - Rhabdomyolysis (6) DM (diabetes mellitus) ICD Code: E11.9 - Type 2 diabetes mellitus without complications Assessment and Plan 71-year-old female with Sepsis on presentation secondary to UTI Resolved Metabolic versus toxic encephalopathy Resolved CT Head w/ no acute findings. Neuro checks q4h. d/c IVF and IV Abx however switched to p.o. Ceftin for underlying UTI Urinary tract infection-E. coli Currently on Rocephin, will switch to p.o. Ceftin Acute kidney injury Resolved with IVF, monitor BMP Decub ulcers Wound care nurse consult pending Chronic pain syndrome Improving with low dose Narco, continue to HOLD Morphine Rhabdomyolysis: Resolved with IV fluid hydration as CPK trending down PK DM: Continue metformin, sliding scale w/ Accu-Cheks. DVT Prophylaxis: SCD/Teds. Problem Qualifiers (1) UTI (urinary tract infection): Qualified Codes: N30.00 - Acute cystitis without hematuria (2) Rhabdomyolysis: Qualified Codes: M62.82 - Rhabdomyolysis Mitch Loera MD Jun 26, 2017 09:37
[2017-06-26] MEDS ORDERED: LACTCHW3 CHEW (09:38)
[2017-06-26] MEDS ORDERED: CEFU1TAB20 PO (09:38)
--- NOTE | 2017-06-26 09:42 | HHI.DS ---
Discharge Summary Admission Date Jun 24, 2017 at 04:33 Discharge Date: Jun 26, 2017 Admitting Diagnosis uti and renal failure (1) Sepsis ICD Code: A41.9 - Sepsis, unspecified organism Status: Resolved (2) Encephalopathy ICD Code: G93.40 - Encephalopathy, unspecified Status: Resolved (3) UTI (urinary tract infection) ICD Code: N39.0 - Urinary tract infection, site not specified (4) BILL (acute kidney injury) ICD Code: N17.9 - Acute kidney failure, unspecified (5) Rhabdomyolysis ICD Code: M62.82 - Rhabdomyolysis (6) DM (diabetes mellitus) ICD Code: E11.9 - Type 2 diabetes mellitus without complications Procedures None Brief History - From Admission This is a 77-year-old female with a PMH of Rheumatoid Arthritis, HTN, Hyperlipidemia, COPD, DM and Chronic Narcotic Use who is brought to the ER by EMS after being found down by her roommate. Per report, pt last seen normal approx 12hrs prior, roommate found patient lying on the floor of her apartment covered in urine and feces. Upon arrival, pt combative/refusing medical care, placed in restraints, intermittent episodes of lethargy/sedation. Pt unable to provide any history secondary to AMS. On Morphine ER 15mg po bid per review of medication list. BP 128/58, HR 96, O2 sat 89% on RA, Afebrile. WBC 15.4. Creatinine 1.54, previously 0.78 on 02/06/2015. CPK 3350. UA positive for UTI. CT Head with no acute findings. S/p Zosyn in ER. CBC/BMP: 06/25/17 0526 06/25/17 0526 Significant Findings Laboratory Tests Test 06/24/17 01:25 06/24/17 02:00 06/25/17 02:00 06/25/17 05:26 White Blood Count 15.4 TH/MM3 (4.0-11.0) Mean Corpuscular Hemoglobin 25.7 PG (27.0-34.0) 25.7 PG (27.0-34.0) Red Cell Distribution Width 18.6 % (11.6-17.2) 18.4 % (11.6-17.2) Neutrophils (%) (Auto) 83.3 % (16.0-70.0) 83.1 % (16.0-70.0) Lymphocytes (%) (Auto) 7.9 % (9.0-44.0) Monocytes (%) (Auto) 8.5 % (0.0-8.0) Neutrophils # (Auto) 12.8 TH/MM3 (1.8-7.7) 9.0 TH/MM3 (1.8-7.7) Monocytes # (Auto) 1.3 TH/MM3 (0-0.9) Blood Urea Nitrogen 30 MG/DL (7-18) Creatinine 1.54 MG/DL (0.50-1.00) Random Glucose 120 MG/DL (74-106) 109 MG/DL (74-106) Albumin 2.9 GM/DL (3.4-5.0) 2.9 GM/DL (3.4-5.0) Aspartate Amino Transf (AST/SGOT) 169 U/L (15-37) 125 U/L (15-37) Estimat Glomerular Filtration Rate 33 ML/MIN (>89) Total Creatine Kinase 3350 U/L (26-192) 1163 U/L (26-192) Creatine Kinase MB 48.3 NG/ML (0.5-3.6) 12.5 NG/ML (0.5-3.6) Urine Turbidity HAZY (CLEAR) Urine Occult Blood SMALL (NEG) Urine Nitrite POS (NEG) Urine Leukocyte Esterase SMALL (NEG) Urine Bacteria MANY /hpf (NONE) Urine Mucus FEW /lpf (OCC) Urine Opiates Screen POS (NEG) Red Blood Count 5.44 MIL/MM3 (4.00-5.30) Potassium Level 3.4 MEQ/L (3.5-5.1) Test 06/26/17 07:14 Total Creatine Kinase 274 U/L (26-192) Creatine Kinase MB 7.8 NG/ML (0.5-3.6) Imaging Last Impressions Head CT 06/24/17 0000 Signed Impressions: Service Date/Time: Saturday, June 24, 2017 04:10 - CONCLUSION: 1. No acute findings in the brain. Jeffy Valladares MD PE at Discharge GENERAL: NAD SKIN: Warm and dry. wound to buttocks and RLE thigh HEAD: Normocephalic. EYES: No scleral icterus. No injection or drainage. NECK: Supple, trachea midline. No JVD or lymphadenopathy. CARDIOVASCULAR: Regular rate and rhythm without murmurs, gallops, or rubs. RESPIRATORY: Breath sounds equal bilaterally. No accessory muscle use. GASTROINTESTINAL: Abdomen soft, non-tender, nondistended. MUSCULOSKELETAL: No cyanosis, or edema. BACK: Nontender without obvious deformity. No CVA tenderness. Hospital Course While in hospital, patient was treated for: Sepsis on presentation secondary to UTI Resolved prior to discharge with treatment with IV antibiotics Metabolic versus toxic encephalopathy Resolved CT Head w/ no acute findings. Neuro checks q4h. IVF and IV Abx were provided however switched to p.o. Ceftin for underlying UTI prior to discharge Urinary tract infection-E. coli Currently on Rocephin, will switch to p.o. Ceftin 500 mg p.o. twice daily Acute kidney injury Resolved with IVF Decub ulcers Wound care nurse consult was consulted Chronic pain syndrome Improving with low dose Narco, continue to HOLD Morphine Rhabdomyolysis: Resolved with IV fluid hydration as CPK trending down prior to discharge DM: Initially metformin was held however resume, and patient was started on sliding scale w/ Accu-Cheks. DVT Prophylaxis: SCD/Teds. Pt Condition on Discharge: Good Discharge Disposition: Disch w/ Home Health Serv Discharge Time: > 30 minutes Discharge Instructions DIET: Follow Instructions for: Heart Healthy Diet Activities you can perform: Regular-No Restrictions Follow up Referrals: PCP Follow-up - 1 Week New Medications: Lactobacillus Acidophilus (Lactinex) 1 Chew 1 TAB CHEW DAILY for Nutritional Supplement, #30 TAB 0 Refills Skin Protectants, Misc. (Calazime Skin Protectant/) 3.5 %-0.2 %-69 %-16.5 % Pst 3.5 % TOPICAL BID for Infection, #1 % 1 Refill Walker with Front Wheels (Walker with Front Wheels) 1 Mis Mis EA .XX DIRECTED, #1 0 Refills Cefuroxime (Cefuroxime) 500 Mg Tab 500 MG PO Q12HR for Infection, #14 TAB Continued Medications: Gabapentin (Gabapentin) 300 Mg Cap 300 MG PO BID, #60 CAP 0 Refills Metformin (Metformin) 500 Mg Tab 500 MG PO DAILY for Blood Sugar Management, #30 TAB 0 Refills With a meal Morphine Sulfate ER 12 HR (Morphabond ER 12 HR) 15 Mg Tab 15 MG PO Q12H, TAB 0 Refills Mitch Loera MD Jun 26, 2017 09:42
[2017-06-26] MEDS ORDERED: CEFUROXIME AXETIL 500 MG TAB PO SCH (10:00)
--- NOTE | 2017-06-26 11:01 | PD.WCN.NOT ---
Wound Consult Description: Wound consult ordered by for wound management of buttocks Communicated with: Taryn Arvizu, Recommendation: 1. Cleanse bilateral buttocks with normal saline and pat dry. 2. Apply Calazime cream to open bilateral buttocks wounds BID or after loose stool.May cover with dry dressing per patient request. 3. Apply skin prep to any blisters that arise BID 4. Follow up with out patient wound center. Additional Information: Patient was seen today by publicity writer and Taryn arvizu for wound management of bilateral buttocks.Patient alert and oriented x3 sitting up in bed.Patient was able to independently reposition self to right side.publicity writer was able to visualize entire buttocks area.Patient sustained a injury in the 60s leaving her entire buttocks/ posterior thighs 100% scar tissue.Patient has 2 partial thickness open wounds to bilateral upper buttocks Left upper buttocks measures 4.0cm x 2.0cm x 0.1cm wound base is 100% pink moist non granular tissue.Wound edges are well defined irregular in shape.periwound intact scant serous drainage noted without odor. Right upper buttocks partial thickness wound measures 3.0cm x 1.8cm x 0.1cm wound base is 100%pink/white moist non granular tissue wound edges are well define and even with wound base.Scant serous drainage noted with out odor.Wounds cleansed with normal saline pat dry Calazime cream applied to wound bases and left open air.Patient tolerated wound care well verbalized understanding of wound care.Skin prep left with patient due to having no blisters at this time. Ken George [facility] Jun 26, 2017 11:01
[2017-06-26 12:00] VITALS: BP 132/70; PULSE 81; RESP 17; TEMP 98.5; O2SAT 93
[2017-06-26] MEDS ORDERED: WALKER WHEELS/F1 MIS (12:04)
[2017-06-26] MEDS ORDERED: [UNRECOGNIZED DRUG - OTHER] TOPICAL (12:07)
== END 2017-06-26 15:03 | disposition home health service (06) | DRG 871 ==
LOC: NEPE 00:08 → NEDA 04:33 → N06A 06:27
PROVIDERS: ADMIT Hospitalist; ATTEND Hospitalist
DX: A41.51 Sepsis due to Escherichia coli [E. coli] (principal); G93.41 Metabolic encephalopathy; N17.9 Acute kidney failure, unspecified; L89.329 Pressure ulcer of left buttock, unspecified stage; L89.319 Pressure ulcer of right buttock, unspecified stage; M62.82 Rhabdomyolysis; N39.0 Urinary tract infection, site not specified; J44.9 Chronic obstructive pulmonary disease, unspecified; E78.5 Hyperlipidemia, unspecified; E11.9 Type 2 diabetes mellitus without complications; K21.9 Gastro-esophageal reflux disease without esophagitis; I10 Essential (primary) hypertension; G89.4 Chronic pain syndrome; M06.9 Rheumatoid arthritis, unspecified; M81.0 Age-related osteoporosis without current pathological fracture; F32.9 Major depressive disorder, single episode, unspecified; Z78.1 Physical restraint status; Z79.891 Long term (current) use of opiate analgesic; Z79.84 Long term (current) use of oral hypoglycemic drugs
CPT/HCPCS: 70450; 80053; 80061; 80307; 81001; 82550; 82552; 82948; 85025; 87077; 87086; 87186; 96365; J0696; J2543; J7030